=== PATIENT | female | born 1935 | race Two or more races ===

== ENCOUNTER 2017-10-04 15:26 | Inpatient (IN) | payer MEDICARE ==
[~2017-10-04] VITALS: Ht 162.6 cm; Wt 59.0 kg
[2017-10-04] MEDS ORDERED: METFORMIN HCL500 M1 ORAL (15:53)
[2017-10-04] MEDS ORDERED: HYDROCHLOROTH12.5 M2 ORAL (15:53)
[2017-10-04] MEDS ORDERED: XANAX0.25 MG ORAL (15:53)
[2017-10-04 16:31] VITALS: BP 126/70
[2017-10-04 16:51] LABS: BASOPHILS % (AUTO) 1.7 % (0.0-2.0); EOSINOPHILS % (AUTO) 4.9 % (0.0-3.0); HEMATOCRIT 38.4 % (37.0-47.0); HEMOGLOBIN 13.1 G/DL (12.0-16.0); MEAN CORPUSCULAR VOLUME 96 FL (80-99); MONOCYTES % (AUTO) 7.6 % (1.0-10.0); NEUTROPHILS % (AUTO) 51.9 % (45.0-75.0); PLATELET COUNT 242 K/UL (150-450); RED CELL DISTRIBUTION WIDTH 11.7 % (11.6-14.8); WHITE BLOOD COUNT 8.8 K/UL (4.8-10.8)
[2017-10-04 17:22] LABS: ALANINE AMINOTRANSFERASE 13 U/L (12-78); ALBUMIN 3.5 G/DL (3.4-5.0); ALBUMIN/GLOBULIN RATIO 0.9 (1.0-2.7); ALKALINE PHOSPHATASE 87 U/L (46-116); ANION GAP 3 mmol/L (5-15); ASPARTATE AMINO TRANSFERASE 16 U/L (15-37); BILIRUBIN,TOTAL 0.2 MG/DL (0.2-1.0); BLOOD UREA NITROGEN 35 mg/dL (7-18); CALCIUM 9.5 MG/DL (8.5-10.1); CARBON DIOXIDE 34 MMOL/L (21-32); CHLORIDE 104 MMOL/L (98-107); CKMB < 0.5 NG/ML (0.0-3.6); CREATINE KINASE 32 U/L (26-308); CREATININE 1.1 MG/DL (0.55-1.30); POTASSIUM 4.3 MMOL/L (3.5-5.1); SODIUM 141 MMOL/L (136-145)
--- NOTE | 2017-10-04 17:33 | Diagnostic Imaging Report ---
Indication: Altered mental status Technique: spiral acquisitions obtained through the brain. Angled axial and coronal 5 x 5 mm slices were reconstructed. No IV contrast utilized. Radiation dose was minimized using automated exposure control Total dose length product 1464.06 mGycm. CTDIvol(s) 70.38 mGy Comparison: none FINDINGS: No acute hemorrhage or edema. No mass effect or midline shift. There is age-related enlargement of the ventricles and extra axial CSF spaces. There is periventricular deep white matter ischemic change. Normal desai-white differentiation. There is evidence of prior bilateral ocular surgery. Visualized sinuses are unremarkable. Intact calvarium. IMPRESSION: Chronic and age-related changes. Negative for acute intracranial bleed or mass effect The CT scanner at [facility] is accredited by the [employer] and the scans are performed using protocols designed to limit radiation exposure to as low as reasonably achievable to attain images of sufficient resolution adequate for diagnostic evaluation
[2017-10-04 17:36] LABS: APPEARANCE,URINE CLEAR; BILIRUBIN, URINE NEGATIVE (NEGATIVE); COLOR,URINE PALE YELLOW; GLUCOSE, URINE (UA) NEGATIVE (NEGATIVE); KETONES,URINE NEGATIVE (NEGATIVE); LEUKOCYTE ESTERASE ,URINE NEGATIVE (NEGATIVE); NITRITE,URINE NEGATIVE (NEGATIVE); PH,URINE 7 (4.5-8.0); PROTEIN,URINE 1+ (NEGATIVE); UROBILINOGEN,URINE NORMAL MG/DL (0.0-1.0)
--- NOTE | 2017-10-04 18:24 | Emergency Room Report ---
History of Present Illness General Chief Complaint: Generalized Weakness Source: Medical Record Present Illness HPI 82-year-old female presents ED for evaluation. Patient presenting with weakness and lethargy for the last 3 days. States she feels very tired. States she has very poor appetite. Not eating or drinking. Denies fevers or chills. Denies chest pain. Denies nausea or vomiting. No other aggravating or relieving factors. Denies any other associated symptoms Allergies: Coded Allergies: No Known Allergies (Unverified , 10/04/17) Patient History Past Medical History: DM, HTN Past Surgical History: none Pertinent Family History: none Social History: Denies: smoking, alcohol use, drug use Now: No Immunizations: UTD Reviewed Nursing Documentation: PMH: Agreed; PSxH: Agreed Nursing Documentation-PMH Past Medical History: No History, Except For Hx Hypertension: Yes Hx Diabetes: Yes Review of Systems All Other Systems: negative except mentioned in HPI Physical Exam Vital Signs Date Time Temp Pulse Resp B/P (MAP) Pulse Ox O2 Delivery O2 Flow Rate FiO2 10/04/17 15:23 99.1 80 18 132/82 99 Room Air 99.1 Sp02 EP Interpretation: reviewed, normal General Appearance: no apparent distress, alert, GCS 15, non-toxic Head: normocephalic, atraumatic Eyes: bilateral eye normal inspection, bilateral eye PERRL ENT: hearing grossly normal, normal pharynx, no angioedema, normal voice Neck: full range of motion, supple/symm/no masses Respiratory: chest non-tender, lungs clear, normal breath sounds, speaking full sentences Cardiovascular #1: regular rate, rhythm, no edema Cardiovascular #2: 2+ carotid (R), 2+ carotid (L), 2+ radial (R), 2+ radial (L) , 2+ dorsalis pedis (R), 2+ dorsalis pedis (L) Gastrointestinal: normal bowel sounds, non tender, soft, non-distended, no guarding, no rebound Rectal: deferred Genitourinary: normal inspection, no CVA tenderness Musculoskeletal: back normal, gait/station normal, normal range of motion, non- tender Neurologic: alert, oriented x3, responsive, motor strength/tone normal, sensory intact, speech normal Psychiatric: judgement/insight normal, memory normal, mood/affect normal, no suicidal/homicidal ideation Reflexes: 3+ bicep (R), 3+ bicep (L), 3+ tricep (R), 3+ tricep (L), 3+ knee (R) , 3+ knee (L) Skin: normal color, no rash, warm/dry, well hydrated Lymphatic: no adenopathy Medical Decision Making Diagnostic Impression: Primary Impression: Episode of generalized weakness Additional Impression: ALTON (acute kidney injury) ER Course Hospital Course 82-year-old female presenting to ED with generalized weakness, increased lethargy Differential diagnoses include: Pneumonia, UTI, sepsis, dehydration, PA/ unstable angina Clinical course Patient placed on stretcher. On linux architect with stable vitals are ED course. After initial history and physical, I ordered labs, IV fluids, EKG, chest x-ray, blood cultures, UA. CT Head Labs - BUN elevated, no leukocytosis, troponins negative, UA negative CT Head ok EKG - NSR, no acute ischemic changes interpreted by me CXR - no acute process Patient continues to feel very weak. Not tolerating by mouth. I believe patient requires inpatient workup Case discussed with Dr Mcclelland and they agreed to admit patient to their service for further care and support I feel this is a highly complex case requiring extensive working including EKG/ Rhythm strip, Xray/CT/US, Blood/urine lab work, repeat exams while in ED, and administration of strong opiates/narcotics for pain control, admission to hospital or close patient follow up. Diagnosis - ALTON, generalized weakness Patient admitted to floor in serious condition Labs Test 10/04/17 16:15 10/04/17 16:58 White Blood Count 8.8 K/UL (4.8-10.8) Red Blood Count 4.00 M/UL (4.20-5.40) Hemoglobin 13.1 G/DL (12.0-16.0) Hematocrit 38.4 % (37.0-47.0) Mean Corpuscular Volume 96 FL (80-99) Mean Corpuscular Hemoglobin 32.7 PG (27.0-31.0) Mean Corpuscular Hemoglobin Concent 34.0 G/DL (32.0-36.0) Red Cell Distribution Width 11.7 % (11.6-14.8) Platelet Count 242 K/UL (150-450) Mean Platelet Volume 5.8 FL (6.5-10.1) Neutrophils (%) (Auto) 51.9 % (45.0-75.0) Lymphocytes (%) (Auto) 34.0 % (20.0-45.0) Monocytes (%) (Auto) 7.6 % (1.0-10.0) Eosinophils (%) (Auto) 4.9 % (0.0-3.0) Basophils (%) (Auto) 1.7 % (0.0-2.0) Sodium Level 141 MMOL/L (136-145) Potassium Level 4.3 MMOL/L (3.5-5.1) Chloride Level 104 MMOL/L (98-107) Carbon Dioxide Level 34 MMOL/L (21-32) Anion Gap 3 mmol/L (5-15) Blood Urea Nitrogen 35 mg/dL (7-18) Creatinine 1.1 MG/DL (0.55-1.30) Estimat Glomerular Filtration Rate mL/min (>60) Glucose Level 115 MG/DL (74-106) Lactic Acid Level 2.00 mmol/L (0.66-2.22) Calcium Level 9.5 MG/DL (8.5-10.1) Total Bilirubin 0.2 MG/DL (0.2-1.0) Aspartate Amino Transf (AST/SGOT) 16 U/L (15-37) Alanine Aminotransferase (ALT/SGPT) 13 U/L (12-78) Alkaline Phosphatase 87 U/L (46-116) Total Creatine Kinase 32 U/L (26-308) Creatine Kinase MB < 0.5 NG/ML (0.0-3.6) Creatine Kinase MB Relative Index 1.5 Troponin I 0.000 ng/mL (0.000-0.056) Pro-B-Type Natriuretic Peptide 146 pg/mL (0-125) Total Protein 7.6 G/DL (6.4-8.2) Albumin 3.5 G/DL (3.4-5.0) Globulin 4.1 g/dL Albumin/Globulin Ratio 0.9 (1.0-2.7) Urine Color Pale yellow Urine Appearance Clear Urine pH 7 (4.5-8.0) Urine Specific [place] 1.010 (1.005-1.035) Urine Protein 1+ (NEGATIVE) Urine Glucose (UA) Negative (NEGATIVE) Urine Ketones Negative (NEGATIVE) Urine Occult Blood Negative (NEGATIVE) Urine Nitrite Negative (NEGATIVE) Urine Bilirubin Negative (NEGATIVE) Urine Urobilinogen Normal MG/DL (0.0-1.0) Urine Leukocyte Esterase Negative (NEGATIVE) Urine RBC 0-2 /HPF (0 - 2) Urine WBC 0-2 /HPF (0 - 2) Urine Squamous Epithelial Cells Few /LPF (NONE/OCC) Urine Bacteria Few /HPF (NONE) EKG Diagnostic Results Rate: normal Rhythm: NSR ST Segments: no acute changes ASA given to the pt in ED: No Rhythm Strip Diag. Results EP Interpretation: yes Rhythm: NSR, no PVC's, no ectopy Chest X-Ray Diagnostic Results Chest X-Ray Diagnostic Results : Chest X-Ray Ordered: Yes # of Views/Limited/Complete: 1 View Indication: Other - lethargy, weakness EP Interpretation: Yes Interpretation: no consolidation, no effusion, no pneumothorax, no acute cardiopulmonary disease Impression: No acute disease Electronically Signed by: Electronically signed by Elias Walden MD CT/MRI/US Diagnostic Results CT/MRI/US Diagnostic Results : Imaging Test Ordered: CT Head Impression no acute process Last Vital Signs Date Time Temp Pulse Resp B/P (MAP) Pulse Ox O2 Delivery O2 Flow Rate FiO2 10/04/17 16:31 96.7 76 14 126/70 96 Room Air 96.7 Status: improved Disposition: ADMITTED INPATIENT Condition: Serious Referrals: NOT CHOSEN IPA/,REFERRING (PCP) ELIAS WALDEN M.D. Oct 04, 2017 18:24
[2017-10-04 18:25] VITALS: BP 142/86
--- NOTE | 2017-10-04 18:25 | Diagnostic Imaging Report ---
Indication: Chest pain Technique: One view of the chest Comparison: None Findings: There is a retrocardiac hiatal hernia. Inspiration is suboptimal. The heart size is upper limits of normal. Lungs and pleural spaces are grossly clear. There are cholecystectomy clips. Old healed fracture deformity of the left shoulder Impression: No acute process Hiatal hernia
[2017-10-04] MEDS: NovoLOG Insulin Flexpen SUBQ SCH (21:00)
[2017-10-04] MEDS: Heparin 5000 units/ml inj SUBQ SCH (22:19)
--- NOTE | 2017-10-05 | History and Physical Report ---
DATE OF ADMISSION: 10/04/2017 CHIEF COMPLAINT: Generalized weakness, malaise, and dizziness. HISTORY OF PRESENT ILLNESS: The patient is a pleasant female with history of hypertension and diabetes. She is somewhat of a poor historian. She presented with complaints of generalized weakness, dizziness, and failure to thrive. She denies any fever or chills. She has had no cough. She does admit some mild diarrhea. She denies any recent travel or ill contacts. On evaluation in the emergency room, the patient's initial workup was relatively unremarkable. She did have an EKG with right bundle-branch block. It is unclear whether this is new. The patient had a lactic acid level of 2. UA was clear. Initial troponin was negative. She is now admitted for further evaluation and care. PAST MEDICAL HISTORY: As above. PAST SURGICAL HISTORY: None. CURRENT MEDICATIONS: Reconciled and reviewed. ALLERGIES: None. SOCIAL HISTORY: There is no known history of tobacco, ethanol, or drugs. FAMILY HISTORY: None. REVIEW OF SYSTEMS: GENERAL: Positive for dizziness, malaise, and weakness. HEENT: No headaches. CARDIOPULMONARY: No chest pain. No shortness of breath. GASTROINTESTINAL: No nausea or vomiting. GENITOURINARY: No urgency or frequency. MUSCULOSKELETAL: No joint pain or swelling. NEUROLOGIC: No history of seizures. PHYSICAL EXAMINATION: VITAL SIGNS: Temperature 98 degrees, pulse 71, respirations 18, and blood pressure 142/86. GENERAL: The patient is well developed, in no apparent distress. HEART: Regular rate and rhythm. LUNGS: Clear. ABDOMEN: Soft, nontender, and nondistended. EXTREMITIES: Without clubbing, cyanosis, or edema. LABORATORY DATA: Sodium 141, potassium 4.3, bicarbonate 34, BUN 35, and creatinine 1.1. White count 8 and hemoglobin 13. UA was clear. ASSESSMENT: This is a pleasant female with complaints of: 1. Weakness suspect due to dehydration from gastroenteritis. 2. Dehydration. 3. Gastroenteritis. 4. Diabetes. 5. Hypertension. 6. Failure to thrive. 7. Toxic metabolic encephalopathy. PLAN: 1. IV hydration. 2. Check an echocardiogram. 3. Check orthostatics. 4. Continue outpatient diabetic regimen. 5. Repeat troponin in the morning. 6. PT/OT evaluation. Cecil Mcclelland M.D. DR: Tara JOB#: [id number] CC:
[2017-10-05 04:00] VITALS: BP 140/91
[2017-10-05] MEDS: NovoLOG Insulin Flexpen SUBQ SCH ×4 (05:48→20:42)
[2017-10-05 08:00] VITALS: BP 147/90
--- NOTE | 2017-10-05 09:43 | General Progress Note ---
Assessment/Plan Problem List: (1) ALTON (acute kidney injury) ICD Codes: N17.9 - Acute kidney failure, unspecified SNOMED: 32197580 (2) Episode of generalized weakness ICD Codes: R53.1 - Weakness SNOMED: 75527422 Status: stable, progressing Assessment/Plan ivf monitor for diarrhea pt/ot eval Subjective ROS Limited/Unobtainable: No Constitutional: Reports: malaise, weakness HEENT: Reports: no symptoms Cardiovascular: Reports: no symptoms Respiratory: Reports: no symptoms Gastrointestinal/Abdominal: Reports: diarrhea Genitourinary: Reports: no symptoms Neurologic/Psychiatric: Reports: no symptoms Endocrine: Reports: no symptoms Hematologic/Lymphatic: Reports: no symptoms Allergies: Coded Allergies: No Known Allergies (Unverified , 10/04/17) All Systems: reviewed and negative except above Subjective no events. w/o complaints. weak. dizzy. diarrhea. Objective Last 24 Hour Vital Signs Date Time Temp Pulse Resp B/P (MAP) Pulse Ox O2 Delivery O2 Flow Rate FiO2 10/05/17 09:20 87 10/05/17 09:15 79 10/05/17 09:10 77 10/05/17 08:00 97.0 111 18 147/90 98 97.0 10/05/17 04:00 96.8 112 17 140/91 93 96.8 10/04/17 19:12 73 69 77 10/04/17 18:41 96.7 71 18 142/86 97 Room Air 96.7 10/04/17 18:25 71 18 142/86 97 Room Air 10/04/17 16:31 96.7 76 14 126/70 96 Room Air 96.7 10/04/17 15:23 99.1 80 18 132/82 99 Room Air 99.1 Intake and Output 10/04/17 10/05/17 19:00 07:00 Intake Total 600 ml Output Total 100 ml Balance 500 ml IV Total 600 ml Output Urine Total 100 ml # Voids 1 1 # Bowel Movements 1 Laboratory Tests 10/04/17 16:15: White Blood Count 8.8, Red Blood Count 4.00L, Hemoglobin 13.1, Hematocrit 38.4, Mean Corpuscular Volume 96, Mean Corpuscular Hemoglobin 32.7H, Mean Corpuscular Hemoglobin Concent 34.0, Red Cell Distribution Width 11.7, Platelet Count 242, Mean Platelet Volume 5.8L, Neutrophils (%) (Auto) 51.9, Lymphocytes (%) (Auto) 34.0, Monocytes (%) (Auto) 7.6, Eosinophils (%) (Auto) 4.9H, Basophils (%) (Auto ) 1.7, Sodium Level 141, Potassium Level 4.3, Chloride Level 104, Carbon Dioxide Level 34H, Anion Gap 3L, Blood Urea Nitrogen 35H, Creatinine 1.1, Estimat Glomerular Filtration Rate , Glucose Level 115H, Lactic Acid Level 2.00 , Calcium Level 9.5, Total Bilirubin 0.2, Aspartate Amino Transf (AST/SGOT) 16, Alanine Aminotransferase (ALT/SGPT) 13, Alkaline Phosphatase 87, Total Creatine Kinase 32, Creatine Kinase MB < 0.5, Creatine Kinase MB Relative Index 1.5, Troponin I 0.000, Pro-B-Type Natriuretic Peptide 146H, Total Protein 7.6, Albumin 3.5, Globulin 4.1, Albumin/Globulin Ratio 0.9L 10/04/17 16:58: Urine Color Pale yellow, Urine Appearance Clear, Urine pH 7, Urine Specific [place] 1.010, Urine Protein 1+H, Urine Glucose (UA) Negative, Urine Ketones Negative, Urine Occult Blood Negative, Urine Nitrite Negative, Urine Bilirubin Negative, Urine Urobilinogen Normal, Urine Leukocyte Esterase Negative, Urine RBC 0-2, Urine WBC 0-2, Urine Squamous Epithelial Cells Few, Urine Bacteria Few 10/04/17 18:17: Lactic Acid Level 1.70 10/05/17 05:20: Troponin I 0.000, Hemoglobin A1c 6.2H, Thyroid Stimulating Hormone (TSH) 2.073 Height (Feet): 5 Height (Inches): 4.00 Weight (Pounds): 130 General Appearance: WD/WN, alert Neck: supple Cardiovascular: normal rate, regular rhythm Respiratory/Chest: chest wall non-tender, lungs clear, normal breath sounds Abdomen: normal bowel sounds, non tender, soft Edema: no edema noted Arm (L), no edema noted Arm (R), no edema noted Leg (L), no edema noted Leg (R), no edema noted Pedal (L), no edema noted Pedal (R), no edema noted Generalized Neurologic: alert ASIA ZIEGLER Oct 05, 2017 09:43
[2017-10-05] MEDS: Heparin 5000 units/ml inj SUBQ SCH ×2 (09:46→20:42)
[2017-10-05 12:00] VITALS: BP 150/86
[2017-10-05 15:38] VITALS: BP 155/104
[2017-10-05] MEDS ORDERED: ALPRAZolam 0.25mg tab ORAL PRN (18:00)
[2017-10-05 20:00] VITALS: BP 145/86
[2017-10-05] MEDS ORDERED: Atorvastatin 20mg tab ORAL SCH (21:00)
[2017-10-06] VITALS: BP 140/79
[2017-10-06 04:48] VITALS: BP 142/86
[2017-10-06] MEDS: NovoLOG Insulin Flexpen SUBQ SCH ×4 (06:35→21:00)
[2017-10-06 08:00] VITALS: BP 139/80
--- NOTE | 2017-10-06 08:35 | General Progress Note ---
Assessment/Plan Problem List: (1) ALTON (acute kidney injury) ICD Codes: N17.9 - Acute kidney failure, unspecified SNOMED: 12007405 (2) Episode of generalized weakness ICD Codes: R53.1 - Weakness SNOMED: [id number] Status: stable, progressing Assessment/Plan ivf monitor for diarrhea pt/ot eval Subjective ROS Limited/Unobtainable: No Constitutional: Reports: malaise, weakness HEENT: Reports: no symptoms Cardiovascular: Reports: no symptoms Respiratory: Reports: no symptoms Gastrointestinal/Abdominal: Reports: abdominal pain Genitourinary: Reports: no symptoms Neurologic/Psychiatric: Reports: no symptoms Endocrine: Reports: no symptoms Hematologic/Lymphatic: Reports: no symptoms Allergies: Coded Allergies: No Known Allergies (Unverified , 10/04/17) All Systems: reviewed and negative except above Subjective no events. w/o complaints. weak. dizzy. diarrhea. ct head and abd xray noted. Objective Last 24 Hour Vital Signs Date Time Temp Pulse Resp B/P (MAP) Pulse Ox O2 Delivery O2 Flow Rate FiO2 10/06/17 08:00 98.1 73 18 139/80 97 Room Air 98.1 10/06/17 04:48 98.2 68 18 142/86 94 Room Air 98.2 10/06/17 00:43 Room Air 10/06/17 00:00 97.9 66 18 140/79 96 Room Air 97.9 10/05/17 20:00 Room Air 10/05/17 20:00 97.9 78 20 145/86 96 Room Air 97.9 10/05/17 19:12 74 95 93 10/05/17 18:40 87 155/104 10/05/17 15:38 96.5 87 18 155/104 95 96.5 10/05/17 12:00 97.3 74 18 150/86 99 97.3 10/05/17 09:20 87 10/05/17 09:15 79 10/05/17 09:10 77 Intake and Output 10/05/17 10/06/17 19:00 07:00 Intake Total 805 ml 825 ml Balance 805 ml 825 ml Intake Oral 730 ml IV Total 75 ml 825 ml # Voids 5 Height (Feet): 5 Height (Inches): 4.00 Weight (Pounds): 130 Objective General Appearance: WD/WN, alert Neck: supple Cardiovascular: normal rate, regular rhythm Respiratory/Chest: chest wall non-tender, lungs clear, normal breath sounds Abdomen: normal bowel sounds, non tender, soft Edema: no edema noted Arm (L), no edema noted Arm (R), no edema noted Leg (L), no edema noted Leg (R), no edema noted Pedal (L), no edema noted Pedal (R), no edema noted Generalized Neurologic: alert ASIA ZIEGLER Oct 06, 2017 08:35
[2017-10-06] MEDS ORDERED: Citalopram Hydrobromide 10mg Tab ORAL SCH (09:00)
[2017-10-06] MEDS: Heparin 5000 units/ml inj SUBQ SCH ×2 (09:00→22:01)
[2017-10-06] MEDS ORDERED: metFORMIN 500mg tab ORAL SCH (09:00)
[2017-10-06 12:00] VITALS: BP 150/104
[2017-10-06] MEDS ORDERED: Metoprolol Succinate XL 25mg tab ORAL ONE (13:00)
[2017-10-06 16:00] VITALS: BP 144/100
[2017-10-06] MEDS: metFORMIN 500mg tab ORAL SCH (17:06)
[2017-10-06 20:00] VITALS: BP 145/100
[2017-10-06 21:17] LABS: BASOPHILS % (AUTO) 1.3 % (0.0-2.0); EOSINOPHILS % (AUTO) 3.1 % (0.0-3.0); HEMATOCRIT 41.3 % (37.0-47.0); HEMOGLOBIN 14.4 G/DL (12.0-16.0); LYMPHOCYTES % (AUTO) 38.8 % (20.0-45.0); MEAN CORPUSCULAR VOLUME 93 FL (80-99); MONOCYTES % (AUTO) 8.3 % (1.0-10.0); NEUTROPHILS % (AUTO) 48.6 % (45.0-75.0); PLATELET COUNT 319 K/UL (150-450); RED BLOOD COUNT 4.45 M/UL (4.20-5.40); RED CELL DISTRIBUTION WIDTH 11.2 % (11.6-14.8)
[2017-10-06 21:37] LABS: ALANINE AMINOTRANSFERASE 15 U/L (12-78); ALBUMIN 3.6 G/DL (3.4-5.0); ALBUMIN/GLOBULIN RATIO 0.9 (1.0-2.7); ALKALINE PHOSPHATASE 90 U/L (46-116); ANION GAP 10 mmol/L (5-15); ASPARTATE AMINO TRANSFERASE 14 U/L (15-37); BILIRUBIN,TOTAL 0.5 MG/DL (0.2-1.0); BLOOD UREA NITROGEN 16 mg/dL (7-18); CALCIUM 9.6 MG/DL (8.5-10.1); CARBON DIOXIDE 29 MMOL/L (21-32); CHLORIDE 98 MMOL/L (98-107); CREATININE 0.9 MG/DL (0.55-1.30); POTASSIUM 3.2 MMOL/L (3.5-5.1); SODIUM 137 MMOL/L (136-145)
[2017-10-06] MEDS: Atorvastatin 20mg tab ORAL SCH (21:58)
[2017-10-06] MEDS: Metoprolol Tartrate 50mg tab ORAL SCH (21:58)
[2017-10-07] VITALS: BP 153/91
[2017-10-07 04:00] VITALS: BP 156/84
--- NOTE | 2017-10-07 04:45 | Consultation ---
DATE OF CONSULTATION: 10/05/2017 CARDIOLOGY CONSULT CONSULTING PHYSICIAN: Figueroa Orantes M.D. REQUESTING PHYSICIAN: Cecil Mcclelland M.D. REASON FOR CONSULTATION: Abnormal EKG. HISTORY OF PRESENT ILLNESS: This is an -[id number]-[id number] female presented to the emergency room yesterday with generalized weakness, dizziness, and failure to thrive. She denies fevers or chills, cough, sputum production or shortness of breath, but did have some mild diarrhea. She apparently has not had any recent travel or ill contacts. She had an abnormal EKG in the emergency room, prompting this consultation. Initial troponin levels were negative as was her subsequent 1. I have been asked to assist with further care. PAST MEDICAL HISTORY: Type 2 diabetes mellitus and hypertension. ALLERGIES: None. SOCIAL HISTORY: Negative for smoking, alcohol, or substance abuse. FAMILY HISTORY: Noncontributory. MEDICATIONS: Reviewed and reconciled. REVIEW OF SYSTEMS: No history of endocarditis, pericarditis, myocardial infarction, or exertional chest pain. No history of blood clots in the legs. No history of thyroid disorder. No history of prior stroke, but does not know her cholesterol level. PHYSICAL EXAMINATION: VITAL SIGNS: Afebrile. Blood pressure 155/104, pulse 87, respirations 18. HEENT: Conjunctivae are pink. Oropharynx clear. NECK: Supple. Jugular venous pressure normal. LUNGS: Clear. CARDIAC: Regular rhythm and rate. Normal S1 and S2 with a fourth heart sound. ABDOMEN: Soft and nontender. EXTREMITIES: No edema. ADMISSION LABORATORY DATA: Chest x-ray with no acute process. Troponin negative x2. Lactic acid on admission was 2, now 1.7. BUN 35, creatinine 1.1. Pro-natriuretic peptide 146. Discharge EKG sinus rhythm, inferior infarction of indeterminate age. Right bundle-branch block. IMPRESSION: 1. Lactic acidosis, etiology unclear. Prerenal azotemia. 2. Hypertensive heart disease. No signs of acute congestive heart failure or acute coronary insufficiency. 3. Right bundle-branch block of no clinical significance. Current inferior infarction by EKG criteria. PLAN: Anti-platelet therapy. Lipid evaluation. Reassess metformin, hydration, titrate antihypertensives. Figueroa Orantes M.D. DR: SEAN JOB#: [id number] CC:
[2017-10-07] MEDS: NovoLOG Insulin Flexpen SUBQ SCH ×4 (06:30→21:00)
[2017-10-07 08:00] VITALS: BP 122/92
--- NOTE | 2017-10-07 08:13 | General Progress Note ---
Assessment/Plan Problem List: (1) ALTON (acute kidney injury) ICD Codes: N17.9 - Acute kidney failure, unspecified SNOMED: [id number] (2) Episode of generalized weakness ICD Codes: R53.1 - Weakness SNOMED: [id number] Status: stable Assessment/Plan ivf monitor for diarrhea pt/ot eval tele b-blockade mg and k replace follow up troponin carotids cards follow up Subjective ROS Limited/Unobtainable: No Constitutional: Reports: malaise, weakness HEENT: Reports: no symptoms Cardiovascular: Reports: palpitations Respiratory: Reports: no symptoms Gastrointestinal/Abdominal: Reports: no symptoms Genitourinary: Reports: no symptoms Neurologic/Psychiatric: Reports: weakness Endocrine: Reports: no symptoms Hematologic/Lymphatic: Reports: no symptoms Allergies: Coded Allergies: No Known Allergies (Unverified , 10/04/17) All Systems: reviewed and negative except above Subjective transferred to tele for svt now admits to syncopal episode and dizziness at home. no cp Objective Last 24 Hour Vital Signs Date Time Temp Pulse Resp B/P (MAP) Pulse Ox O2 Delivery O2 Flow Rate FiO2 10/07/17 04:00 97.3 68 16 156/84 95 Room Air 97.3 10/07/17 04:00 69 10/07/17 00:00 98.2 65 18 153/91 94 Room Air 98.2 10/07/17 00:00 69 10/06/17 21:58 125 145/100 10/06/17 20:00 116 10/06/17 20:00 98.1 125 20 145/100 97 Room Air 98.1 10/06/17 16:00 96.5 124 19 144/100 96 Room Air 96.5 10/06/17 16:00 123 10/06/17 13:39 127 150/104 10/06/17 12:00 96.9 127 18 150/104 96 Room Air 96.9 10/06/17 09:43 73 139/80 Intake and Output 10/06/17 10/07/17 19:00 07:00 Intake Total 356 ml Balance 356 ml Intake Oral 356 ml # Voids 3 # Bowel Movements 1 Laboratory Tests 10/06/17 17:00: Troponin I 0.000 10/06/17 21:00: White Blood Count 11.0H, Red Blood Count 4.45, Hemoglobin 14.4, Hematocrit 41.3 , Mean Corpuscular Volume 93, Mean Corpuscular Hemoglobin 32.3H, Mean Corpuscular Hemoglobin Concent 34.8, Red Cell Distribution Width 11.2L, Platelet Count 319, Mean Platelet Volume 5.9L, Neutrophils (%) (Auto) 48.6, Lymphocytes (%) (Auto) 38.8, Monocytes (%) (Auto) 8.3, Eosinophils (%) (Auto) 3.1H, Basophils (%) (Auto) 1.3, Fibrin Degradation Products, Quant [Pending], Sodium Level 137, Potassium Level 3.2L, Chloride Level 98, Carbon Dioxide Level 29, Anion Gap 10, Blood Urea Nitrogen 16, Creatinine 0.9, Estimat Glomerular Filtration Rate , Glucose Level 115H, Calcium Level 9.6, Magnesium Level 1.2L, Total Bilirubin 0.5, Aspartate Amino Transf (AST/SGOT) 14L, Alanine Aminotransferase (ALT/SGPT) 15, Alkaline Phosphatase 90, Total Protein 7.8, Albumin 3.6, Globulin 4.2, Albumin/Globulin Ratio 0.9L Height (Feet): 5 Height (Inches): 4.00 Weight (Pounds): 130 Objective General Appearance: WD/WN, alert Neck: supple Cardiovascular: normal rate, regular rhythm Respiratory/Chest: chest wall non-tender, lungs clear, normal breath sounds Abdomen: normal bowel sounds, non tender, soft Edema: no edema noted Arm (L), no edema noted Arm (R), no edema noted Leg (L), no edema noted Leg (R), no edema noted Pedal (L), no edema noted Pedal (R), no edema noted Generalized Neurologic: alert ASIA ZIEGLER Oct 07, 2017 08:13
[2017-10-07] MEDS: Metoprolol Tartrate 50mg tab ORAL SCH ×2 (09:41→21:08)
[2017-10-07] MEDS: ALPRAZolam 0.25mg tab ORAL PRN ×2 (09:41→17:45)
[2017-10-07] MEDS: Citalopram Hydrobromide 10mg Tab ORAL SCH (09:42)
[2017-10-07] MEDS: metFORMIN 500mg tab ORAL SCH ×2 (09:42→17:45)
[2017-10-07] MEDS: Aspirin Baby 81mg ORAL SCH (09:43)
[2017-10-07] MEDS: Heparin 5000 units/ml inj SUBQ SCH ×2 (09:45→21:12)
--- NOTE | 2017-10-07 10:15 | Progress Note ---
DATE: 10/06/2017 CARDIOLOGY PROGRESS NOTE SUBJECTIVE: The patient developed tachycardia today. No complaints of chest pain or shortness of breath. Troponin level is negative. OBJECTIVE: VITAL SIGNS: Blood pressure 145/100, pulse 125, respirations 20, and afebrile. Room air oxygen saturation 97%. NECK: Supple. No accessory muscle use. LUNGS: Clear. CARDIAC: Regular rhythm and rate. Normal S1, S2 with a fourth heart sound. ABDOMEN: Soft, no edema. LABORATORY DATA: Notable for potassium 3.2, magnesium 1.2. IMPRESSION: 1. Hypertensive urgency. 2. Sinus tachycardia, etiology unclear. 3. Ischemic heart disease, by EKG criteria. PLAN: 1. beta-franklin and antihypertensive. 2. Aspirin prophylaxis. 3. Check fibrin split products and venous duplex scan. 4. Check lipid panel. 5. Check thyroid panel. 6. Replace potassium and magnesium intravenously. Figueroa Orantes M.D. DR: BRENDA JOB#: [id number] CC:
[2017-10-07 11:32] LABS: ALANINE AMINOTRANSFERASE 14 U/L (12-78); ALBUMIN 3.8 G/DL (3.4-5.0); ALBUMIN/GLOBULIN RATIO 1.1 (1.0-2.7); ALKALINE PHOSPHATASE 89 U/L (46-116); ANION GAP 10 mmol/L (5-15); ASPARTATE AMINO TRANSFERASE 17 U/L (15-37); BILIRUBIN,TOTAL 0.4 MG/DL (0.2-1.0); BLOOD UREA NITROGEN 18 mg/dL (7-18); CALCIUM 9.5 MG/DL (8.5-10.1); CARBON DIOXIDE 27 MMOL/L (21-32); CHLORIDE 98 MMOL/L (98-107); CHOLESTEROL 193 MG/DL (< 200); CREATININE 0.8 MG/DL (0.55-1.30); HDL CHOLESTEROL 69 MG/DL (40-60); POTASSIUM 3.8 MMOL/L (3.5-5.1); SODIUM 135 MMOL/L (136-145); TRIGLYCERIDES 106 MG/DL (30-150)
[2017-10-07 12:00] VITALS: BP 156/59
[2017-10-07 16:00] VITALS: BP 130/80
--- NOTE | 2017-10-07 18:17 | Cardiology Report ---
APPROVED REPORT EXAM: Two-dimensional and M-mode echocardiogram with Doppler and color Doppler. INDICATION Hypertension/HCVD M-Mode DIMENSIONS IVSd1.6 (0.7-1.1cm)Left Atrium (MM)3.5 (1.6-4.0cm) LVDd3.3 (3.5-5.6cm)Aortic Root3.0 (2.0-3.7cm) PWd1.0 (0.7-1.1cm)Aortic Cusp Exc.1.4 (1.5-2.0cm) LVDs0.9 (2.5-4.0cm) PWs2.3 cm Technically difficult and limited study due to poor acoustical windows. Study quality precludes accurate assessment of regional wall motion. Normal left ventricular chamber size, systolic function and wall motion. Left ventricular ejection fraction estimated to be 55-60%. Mild left ventricular hypertrophy. Anterior Echo-free space, may be due to pericardial fat or effusion. Left atrial size at upper limits of normal. Right cardiac chamber sizes are within normal limits. Focal aortic valve sclerosis with adequate cusp excursion. Mildly thickened mitral valve leaflets with normal excursion. Mild mitral annulus and aortic root calcification. Pulmonic valve not visualized. Normal tricuspid valve structure. IVC dilated at 2.1 cm with physiological collapse. A color flow and spectral Doppler study was performed and revealed: Moderate aortic insufficiency. Mild mitral regurgitation. pseudo-normal LV physiology (grade II LV diastolic dysfunction). Mild tricuspid regurgitation. Tricuspid systolic velocities suggests peak right ventricular systolic pressure of 49 mmHg, consistent with moderate pulmonary hypertension.
--- NOTE | 2017-10-07 18:56 | Cardiology Report ---
APPROVED REPORT EXAM: Two-dimensional and M-mode echocardiogram with Doppler and color Doppler. INDICATION Arrhythmia M-Mode DIMENSIONS IVSd1.6 (0.7-1.1cm)Left Atrium (MM)3.7 (1.6-4.0cm) LVDd3.5 (3.5-5.6cm)Aortic Root3.3 (2.0-3.7cm) PWd1.1 (0.7-1.1cm)Aortic Cusp Exc.1.4 (1.5-2.0cm) LVDs0.8 (2.5-4.0cm) PWs2.3 cm Technically difficult and limited study due to poor acoustical windows. Study quality precludes accurate assessment of regional wall motion. Normal left ventricular chamber size, systolic function and wall motion. Left ventricular ejection fraction estimated to be 55-60 %. Mild left ventricular hypertrophy. Anterior Echo-free space, may be due to pericardial fat or effusion. Mild left atrial enlargement by 2D. Right cardiac chamber sizes are within normal limits. Focal aortic valve sclerosis with adequate cusp excursion. Mildly thickened mitral valve leaflets with normal excursion. Mild mitral annulus and aortic root calcification. Pulmonic valve not visualized. Normal tricuspid valve structure. IVC dilated at 2.1 cm with physiological collapse. A color flow and spectral Doppler study was performed and revealed: Moderate aortic insufficiency. Mild mitral regurgitation. Mitral diastolic velocities suggest mild left ventricular diastolic dysfunction (Grade I). Mild tricuspid regurgitation. Tricuspid systolic velocities suggests peak right ventricular systolic pressure of 38 mmHg, consistent with mild pulmonary hypertension.
--- NOTE | 2017-10-07 19:24 | Cardiology Report ---
APPROVED REPORT EKG Measurement Heart [id number] DC 152P20 [id number] Normal sinus rhythm Right bundle branch block Abnormal ECG
[2017-10-07 20:00] VITALS: BP 130/98
[2017-10-07] MEDS: Atorvastatin 20mg tab ORAL SCH (21:07)
[2017-10-08] VITALS (7 sets, daily range): BP systolic 104–146; BP diastolic 58–96
--- NOTE | 2017-10-08 03:31 | Progress Note ---
DATE: 10/07/2017 CARDIOLOGY PROGRESS NOTE SUBJECTIVE: The patient feels better. Less diarrhea. No chest pain. No shortness of breath. She received intravenous magnesium early this morning and oral potassium. OBJECTIVE: VITAL SIGNS: Blood pressure 156/84, pulse 68, and respirations 16. LUNGS: Clear. CARDIAC: Regular. Normal S1 and S2 with a fourth heart sound. ABDOMEN: Soft. EXTREMITIES: No edema. LABORATORY DATA: Lactic acid level and troponin are normal. Repeat potassium is 3.8. IMPRESSION: 1. Paroxysmal supraventricular tachyarrhythmias and sinus tachycardia, now resolved. 2. Hypomagnesemia. 3. Hypokalemia. 4. Syncope likely due to tachyarrhythmia and hypovolemia. 5. Type 2 diabetes mellitus. 6. History of hypertension. PLAN: 1. Follow up echocardiogram and carotid duplex studies. 2. Optimize cardiovascular regimen. 3. Recheck electrolytes. Figueroa Orantes M.D. DR: JAZZY JOB#: [id number] CC:
[2017-10-08] MEDS: NovoLOG Insulin Flexpen SUBQ SCH ×4 (06:18→21:00)
[2017-10-08 07:05] LABS: ALANINE AMINOTRANSFERASE 15 U/L (12-78); ALBUMIN 3.3 G/DL (3.4-5.0); ALBUMIN/GLOBULIN RATIO 0.9 (1.0-2.7); ALKALINE PHOSPHATASE 73 U/L (46-116); ANION GAP 9 mmol/L (5-15); ASPARTATE AMINO TRANSFERASE 15 U/L (15-37); BILIRUBIN,TOTAL 0.5 MG/DL (0.2-1.0); BLOOD UREA NITROGEN 23 mg/dL (7-18); CALCIUM 9.4 MG/DL (8.5-10.1); CARBON DIOXIDE 29 MMOL/L (21-32); CHLORIDE 101 MMOL/L (98-107); POTASSIUM 3.4 MMOL/L (3.5-5.1); SODIUM 139 MMOL/L (136-145)
[2017-10-08] MEDS: Metoprolol Tartrate 50mg tab ORAL SCH ×2 (08:56→21:47)
[2017-10-08] MEDS: metFORMIN 500mg tab ORAL SCH ×2 (08:56→17:35)
[2017-10-08] MEDS: Citalopram Hydrobromide 10mg Tab ORAL SCH (08:57)
[2017-10-08] MEDS: Heparin 5000 units/ml inj SUBQ SCH ×2 (08:59→21:52)
[2017-10-08] MEDS: Aspirin Baby 81mg ORAL SCH (09:01)
--- NOTE | 2017-10-08 10:29 | General Progress Note ---
Assessment/Plan Problem List: (1) ALTON (acute kidney injury) ICD Codes: N17.9 - Acute kidney failure, unspecified SNOMED: 37769969 (2) Episode of generalized weakness ICD Codes: R53.1 - Weakness SNOMED: 25122564 Status: stable, progressing Assessment/Plan ivf monitor for diarrhea pt/ot eval tele b-blockade mg and k replace carotids cards follow up Subjective ROS Limited/Unobtainable: No Constitutional: Reports: malaise, weakness HEENT: Reports: no symptoms Cardiovascular: Reports: no symptoms Respiratory: Reports: no symptoms Gastrointestinal/Abdominal: Reports: no symptoms Genitourinary: Reports: no symptoms Neurologic/Psychiatric: Reports: no symptoms Endocrine: Reports: no symptoms Hematologic/Lymphatic: Reports: no symptoms Allergies: Coded Allergies: No Known Allergies (Unverified , 10/04/17) All Systems: reviewed and negative except above Subjective no events. having intermittent episodes of svt as well as bradycardia. no cp/ sob. labs noted. low k and mg Objective Last 24 Hour Vital Signs Date Time Temp Pulse Resp B/P (MAP) Pulse Ox O2 Delivery O2 Flow Rate FiO2 10/08/17 09:30 144/77 129/79 104/58 10/08/17 09:00 97.0 89 18 129/96 98 Room Air 97.0 10/08/17 08:57 69 129/96 10/08/17 08:56 69 129/76 10/08/17 08:00 71 10/08/17 04:10 72 10/08/17 04:05 64 10/08/17 04:00 97.7 89 19 130/72 96 Room Air 97.7 10/08/17 04:00 61 10/08/17 04:00 86 10/08/17 00:00 97.4 94 18 123/82 92 Room Air 97.4 10/08/17 00:00 67 10/07/17 21:08 100 130/98 10/07/17 20:00 124 10/07/17 20:00 96.8 100 20 130/98 90 Room Air 96.8 10/07/17 16:00 97.3 87 19 130/80 98 Room Air 97.3 10/07/17 16:00 69 10/07/17 12:07 60 10/07/17 12:00 97.3 70 19 156/59 97 Room Air 97.3 Intake and Output 10/07/17 10/08/17 19:00 07:00 Intake Total 232 ml 116 ml Balance 232 ml 116 ml Intake Oral 232 ml 116 ml # Voids 1 5 Laboratory Tests 10/08/17 05:45: Sodium Level 139, Potassium Level 3.4L, Chloride Level 101, Carbon Dioxide Level 29, Anion Gap 9, Blood Urea Nitrogen 23H, Creatinine 1.0, Estimat Glomerular Filtration Rate , Glucose Level 83, Calcium Level 9.4, Magnesium Level 1.7L, Total Bilirubin 0.5, Aspartate Amino Transf (AST/SGOT) 15, Alanine Aminotransferase (ALT/SGPT) 15, Alkaline Phosphatase 73, Total Protein 6.8, Albumin 3.3L, Globulin 3.5, Albumin/Globulin Ratio 0.9L Height (Feet): 5 Height (Inches): 4.00 Weight (Pounds): 130 Objective General Appearance: WD/WN, alert Neck: supple Cardiovascular: normal rate, regular rhythm Respiratory/Chest: chest wall non-tender, lungs clear, normal breath sounds Abdomen: normal bowel sounds, non tender, soft Edema: no edema noted Arm (L), no edema noted Arm (R), no edema noted Leg (L), no edema noted Leg (R), no edema noted Pedal (L), no edema noted Pedal (R), no edema noted Generalized Neurologic: alert ASIA ZIEGLER Oct 08, 2017 10:29
[2017-10-08] MEDS: Atorvastatin 20mg tab ORAL SCH (21:47)
[2017-10-09] VITALS: BP 129/85
[2017-10-09 04:00] VITALS: BP 122/76
--- NOTE | 2017-10-09 04:30 | Progress Note ---
DATE: 10/08/2017 CARDIOLOGY PROGRESS NOTE SUBJECTIVE: The patient had episode of bradycardia to the 40s today, but was asymptomatic, it was transient for less than a minute. The patient continues to have some episodes of rapid heart rates in the low 100 range, but no SVT. Echocardiogram performed revealed normal ejection fraction, moderate aortic insufficiency, and mild tricuspid regurgitation due to degenerative valve disease. Venous duplex negative for DVT. OBJECTIVE: VITAL SIGNS: Blood pressure 144/77, pulse 89, respiratory rate 18 and afebrile. LUNGS: Clear. CARDIAC: Regular rate. Normal S1, S2. There is a 1/6 systolic apical murmur. EXTREMITIES: Without edema. LABORATORY DATA: Potassium 3.4, magnesium 1.7. IMPRESSION: 1. Paroxysmal supraventricular tachycardia. 2. Sinus node disease. 3. Hypertensive heart disease. 4. Hypokalemia. 5. Hypomagnesemia. 6. Mild protein calorie malnutrition. PLAN: 1. Additional potassium and magnesium replacement. 2. Titrate beta-franklin. 3. Mobilize fall precautions. 4. No immediate indication for pacemaker at this time. Figueroa Orantes M.D. DR: JULIANA JOB#: [id number] CC:
[2017-10-09] MEDS: NovoLOG Insulin Flexpen SUBQ SCH ×4 (05:54→21:00)
[2017-10-09 08:00] VITALS: BP 148/99
[2017-10-09] MEDS: Citalopram Hydrobromide 10mg Tab ORAL SCH (09:02)
[2017-10-09] MEDS: Metoprolol Tartrate 50mg tab ORAL SCH ×2 (09:05→21:24)
[2017-10-09] MEDS: Heparin 5000 units/ml inj SUBQ SCH ×2 (09:06→21:27)
[2017-10-09] MEDS: Aspirin Baby 81mg ORAL SCH (09:07)
[2017-10-09] MEDS: metFORMIN 500mg tab ORAL SCH ×2 (09:09→17:21)
[2017-10-09 12:00] VITALS: BP 141/78
[2017-10-09 16:00] VITALS: BP 141/63
[2017-10-09 20:00] VITALS: BP 127/69
[2017-10-09] MEDS: Atorvastatin 20mg tab ORAL SCH (21:24)
[2017-10-09] MEDS: ALPRAZolam 0.25mg tab ORAL PRN (21:31)
--- NOTE | 2017-10-09 21:42 | General Progress Note ---
Assessment/Plan Problem List: (1) ALTON (acute kidney injury) ICD Codes: N17.9 - Acute kidney failure, unspecified SNOMED: 74756143 (2) Episode of generalized weakness ICD Codes: R53.1 - Weakness SNOMED: 89570971 Status: stable, progressing Assessment/Plan ivf monitor orthostatics pt/ot eval tele b-blockade replace lytes as needed carotids cards follow up Subjective Constitutional: Reports: malaise, weakness HEENT: Reports: no symptoms Cardiovascular: Reports: irregular heart rate, palpitations Respiratory: Reports: no symptoms Gastrointestinal/Abdominal: Reports: no symptoms Genitourinary: Reports: no symptoms Neurologic/Psychiatric: Reports: no symptoms Endocrine: Reports: no symptoms Hematologic/Lymphatic: Reports: no symptoms Allergies: Coded Allergies: No Known Allergies (Unverified , 10/04/17) All Systems: reviewed and negative except above Subjective no events. having intermittent episodes of svt as well as bradycardia. no cp/ sob. cards noted +orthostatics Objective Last 24 Hour Vital Signs Date Time Temp Pulse Resp B/P (MAP) Pulse Ox O2 Delivery O2 Flow Rate FiO2 10/09/17 21:24 66 141/63 10/09/17 16:00 98.2 60 18 141/63 95 98.2 10/09/17 16:00 66 10/09/17 12:00 97.0 57 18 141/78 96 97.0 10/09/17 12:00 57 10/09/17 09:05 74 148/99 10/09/17 09:05 74 148/99 10/09/17 08:00 97.2 74 18 148/99 96 Room Air 97.2 10/09/17 08:00 66 10/09/17 04:00 106 10/09/17 04:00 96.6 98 18 122/76 95 Room Air 96.6 10/09/17 00:00 97.5 113 18 129/85 96 Room Air 97.5 10/09/17 00:00 110 10/08/17 21:47 67 142/91 Intake and Output 10/08/17 10/09/17 19:00 07:00 Intake Total 440 ml Output Total 400 ml Balance 40 ml Intake Oral 240 ml IV Total 200 ml Output Urine Total 400 ml # Voids 2 2 Height (Feet): 5 Height (Inches): 4.00 Weight (Pounds): 130 Objective General Appearance: WD/WN, alert Neck: supple Cardiovascular: normal rate, regular rhythm Respiratory/Chest: chest wall non-tender, lungs clear, normal breath sounds Abdomen: normal bowel sounds, non tender, soft Edema: no edema noted Arm (L), no edema noted Arm (R), no edema noted Leg (L), no edema noted Leg (R), no edema noted Pedal (L), no edema noted Pedal (R), no edema noted Generalized Neurologic: alert ASIA ZIEGLER Oct 09, 2017 21:42
[2017-10-09] MEDS ORDERED: Sodium Chloride 500ML 550 ML IV ONE (21:45)
[2017-10-10] VITALS: BP 133/65
[2017-10-10 04:00] VITALS: BP 127/65
[2017-10-10] MEDS: NovoLOG Insulin Flexpen SUBQ SCH ×2 (06:30→11:30)
--- NOTE | 2017-10-10 07:39 | General Progress Note ---
Assessment/Plan Problem List: (1) ALTON (acute kidney injury) ICD Codes: N17.9 - Acute kidney failure, unspecified SNOMED: 57203035 (2) Episode of generalized weakness ICD Codes: R53.1 - Weakness SNOMED: 86744744 (3) SVT (supraventricular tachycardia) ICD Codes: I47.1 - Supraventricular tachycardia SNOMED: 5218191 (4) Orthostatic hypotension ICD Codes: I95.1 - Orthostatic hypotension SNOMED: 94232767 Status: stable, progressing Assessment/Plan ivf monitor orthostatics pt/ot eval tele b-blockade replace lytes as needed carotids cards follow up anticipate dc planning later today if no more svt/bradycardia Subjective ROS Limited/Unobtainable: No Constitutional: Reports: weakness HEENT: Reports: no symptoms Cardiovascular: Reports: irregular heart rate Respiratory: Reports: no symptoms Gastrointestinal/Abdominal: Reports: no symptoms Genitourinary: Reports: no symptoms Neurologic/Psychiatric: Reports: no symptoms Endocrine: Reports: no symptoms Hematologic/Lymphatic: Reports: no symptoms Allergies: Coded Allergies: No Known Allergies (Unverified , 10/04/17) All Systems: reviewed and negative except above Subjective no events. walked with pt yesterday. Hr better controlled 60-110. no dizziness. bolused ivf for +orthostatics last night Objective Last 24 Hour Vital Signs Date Time Temp Pulse Resp B/P (MAP) Pulse Ox O2 Delivery O2 Flow Rate FiO2 10/10/17 04:00 97.3 69 21 127/65 94 Room Air 97.3 10/10/17 04:00 62 10/10/17 00:00 117 10/10/17 00:00 98.1 90 22 133/65 97 Room Air 98.1 10/09/17 21:24 66 141/63 10/09/17 20:00 76 10/09/17 20:00 97.3 69 21 127/69 94 Room Air 97.3 10/09/17 16:00 98.2 60 18 141/63 95 98.2 10/09/17 16:00 66 10/09/17 12:00 97.0 57 18 141/78 96 97.0 10/09/17 12:00 57 10/09/17 09:05 74 148/99 10/09/17 09:05 74 148/99 10/09/17 08:00 97.2 74 18 148/99 96 Room Air 97.2 10/09/17 08:00 66 Intake and Output 10/09/17 10/10/17 19:00 07:00 Intake Total 360 ml Balance 360 ml Intake Oral 360 ml # Voids 2 2 Height (Feet): 5 Height (Inches): 4.00 Weight (Pounds): 130 Objective General Appearance: WD/WN, alert Neck: supple Cardiovascular: normal rate, regular rhythm Respiratory/Chest: chest wall non-tender, lungs clear, normal breath sounds Abdomen: normal bowel sounds, non tender, soft Edema: no edema noted Arm (L), no edema noted Arm (R), no edema noted Leg (L), no edema noted Leg (R), no edema noted Pedal (L), no edema noted Pedal (R), no edema noted Generalized Neurologic: alert ASIA ZIEGLER Oct 10, 2017 07:39
[2017-10-10] MEDS ORDERED: LIPITOR20 MG ORAL (07:45)
[2017-10-10] MEDS ORDERED: ASPIRIN81 MG ORAL (07:45)
[2017-10-10] MEDS ORDERED: CELEXA20 MG ORAL (07:45)
[2017-10-10] MEDS ORDERED: PROTONIX40 MG ORAL (07:45)
[2017-10-10] MEDS ORDERED: PROCARDIA XL30 MG ORAL (07:45)
[2017-10-10] MEDS ORDERED: METOPROLOL TART50 MG ORAL (07:45)
[2017-10-10] MEDS ORDERED: GLUCOPHAGE500 MG ORAL (07:45)
[2017-10-10 08:00] VITALS: BP_SYST 123; BP_SYST 134; BP_SYST 145; BP_DIAS 78; BP_DIAS 90
[2017-10-10] MEDS: Citalopram Hydrobromide 10mg Tab ORAL SCH (08:36)
[2017-10-10] MEDS: metFORMIN 500mg tab ORAL SCH (08:36)
[2017-10-10] MEDS: Aspirin Baby 81mg ORAL SCH (08:36)
[2017-10-10] MEDS: Metoprolol Tartrate 50mg tab ORAL SCH (08:36)
[2017-10-10] MEDS: Heparin 5000 units/ml inj SUBQ SCH (08:39)
[2017-10-10 08:43] LABS: BASOPHILS % (AUTO) 1.5 % (0.0-2.0); EOSINOPHILS % (AUTO) 3.4 % (0.0-3.0); HEMATOCRIT 34.5 % (37.0-47.0); HEMOGLOBIN 11.8 G/DL (12.0-16.0); LYMPHOCYTES % (AUTO) 41.2 % (20.0-45.0); MEAN CORPUSCULAR VOLUME 95 FL (80-99); MONOCYTES % (AUTO) 8.9 % (1.0-10.0); PLATELET COUNT 221 K/UL (150-450); RED BLOOD COUNT 3.64 M/UL (4.20-5.40); WHITE BLOOD COUNT 7.6 K/UL (4.8-10.8)
[2017-10-10 09:01] LABS: ALANINE AMINOTRANSFERASE 16 U/L (12-78); ALBUMIN 3.2 G/DL (3.4-5.0); ALBUMIN/GLOBULIN RATIO 0.9 (1.0-2.7); ALKALINE PHOSPHATASE 68 U/L (46-116); ANION GAP 7 mmol/L (5-15); ASPARTATE AMINO TRANSFERASE 14 U/L (15-37); BILIRUBIN,TOTAL 0.4 MG/DL (0.2-1.0); BLOOD UREA NITROGEN 23 mg/dL (7-18); CALCIUM 9.2 MG/DL (8.5-10.1); CARBON DIOXIDE 31 MMOL/L (21-32); CHLORIDE 104 MMOL/L (98-107); CREATININE 0.9 MG/DL (0.55-1.30); POTASSIUM 3.4 MMOL/L (3.5-5.1); SODIUM 142 MMOL/L (136-145)
[2017-10-10 12:00] VITALS: BP 142/78
--- NOTE | 2017-10-10 19:18 | Cardiology Report ---
APPROVED REPORT EKG Measurement Heart [id number] 114P82 [id number] Sinus tachycardia Right bundle branch block Inferior infarct, age undetermined Abnormal ECG
--- NOTE | 2017-10-11 08:54 | Diagnostic Imaging Report ---
APPROVED REPORT CPT Code: 01563 Vascular Symptoms Dizziness and Vertigo Doppler Spectral Velocity Analysis RightLeft BILATERAL: CCA - Imaging reveals no significant plaque in the right and left common external carotid arteries. The Doppler signal indicates the degree of stenosis is minimal (05%-10%) in the internal and external carotid arteries. VERTEBRAL- The vertebral arteries are patent without evidence of stenosis or steal.
--- NOTE | 2017-10-11 08:54 | Diagnostic Imaging Report ---
APPROVED REPORT CPT Code: 50172 Present Symptoms Comments: R/O DVT HX OF HTN BILATERAL: Imaging reveals a patent deep venous system bilaterally. There is no evidence of thrombus within the femoral, popliteal or tibial segments. The greater saphenous veins are also within normal limits. Doppler indicates normal spontaneous flow within these segments.
--- NOTE | 2017-10-11 12:31 | Discharge Summary ---
Discharge Summary Hospital Course Date of Admission Oct 04, 2017 at 16:21 Date of Discharge Oct 10, 2017 at 16:19 Admitting Diagnosis WEAKNESS HPI Matilda Gonzales is a 82 year old female who was admitted on Oct 04, 2017 at 16:21 for Weakness Hospital Course [id number] Discharge Discharge Disposition Patient was discharged to Home with Home Health(06) Katalina Rod NP Oct 11, 2017 12:31
--- NOTE | 2017-10-12 00:45 | Discharge Summary 2 SIG ---
DATE OF ADMISSION: 10/04/2017 DATE OF DISCHARGE: 10/10/2017 PIZZA DELIVERY: Figueroa Orantes M.D. BRIEF HOSPITAL COURSE: The patient is an 82-year-old female with history of hypertension and diabetes who is a poor historian presented with complaints of generalized weakness, dizziness, and failure to thrive. She denied any fever or chills. She has no cough. She does have some mild diarrhea however no recent travel or any sick contacts. On evaluation at ED, the patient's initial workup was relatively unremarkable. She had an EKG with right bundle-branch block. Unclear whether this is new. She had a lactic acid of 2. Urinalysis was clear. Initial troponin was negative. She was admitted for evaluation of weakness, suspect due to dehydration and from gastroenteritis. She was given IV hydration. Her troponins were monitored. She underwent cardiac evaluation with Dr. Orantes. Troponin levels were negative. She had hypertensive heart disease, however, no signs of acute congestive heart failure or acute coronary insufficiency. She had an echocardiogram done that showed ejection fraction of 55% to 60% with normal left ventricular size, function, and wall motion. She had moderate aortic insufficiency, mild mitral regurgitation, mild tricuspid regurgitation, and mild pulmonary hypertension. Venous duplex of lower extremity was negative for acute DVT. Carotid ultrasound showed no significant plaque in the right and left common external carotid artery. There was minimal degree of stenosis in the internal and carotid artery. Vertebral arteries were patent without evidence of stenosis or steal . She was monitored for diarrhea and had episodes of hypokalemia, potassium and magnesium were replaced. She was given aspirin and was continued on Lipitor. She was placed on Procardia and metoprolol. Blood sugars were monitored and was given Glucophage 500 mg b.i.d. together with NovoLog sliding scale. She had an episode of paroxysmal supraventricular tachyarrhythmia and sinus tachycardia which eventually resolved. She was given physical therapy and occupational therapy evaluation. She was eventually discharged home with home health. FINAL DIAGNOSES: 1. Acute kidney injury. 2. Episode of generalized weakness. 3. Supraventricular tachycardia. 4. Orthostatic hypotension. 5. Hypokalemia. 6. Hypertensive heart disease. 7. Hypomagnesemia. 8. Mild protein-calorie malnutrition. 9. Sinus node disease. 10. Syncope likely due to tachyarrhythmia and hypokalemia. 11. Right bundle-branch block of no clinical significance. 12. Lactic acidosis. DISPOSITION: The patient was discharged home with home health. DISCHARGE MEDICATIONS: Refer to medication list. DISCHARGE INSTRUCTIONS: Followup with PCP in a week. Cecil Mcclelland M.D. I have been assigned to dictate discharge summary on this account and I was not involved in the patient's management. Katalina Rod N.P. DR: Olivier JOB#: [id number] CC: NEO
--- NOTE | 2017-10-12 03:30 | Progress Note ---
DATE: 10/10/2017 CARDIOLOGY PROGRESS NOTE Late entry for 10/10/2017. SUBJECTIVE: The patient's friend has brought her prior medications in and she was on a different beta-franklin although dose is not clear. The patient has been advised to continue one beta-franklin upon discharge namely metoprolol, which I feel has better control of heart rate. The patient has no chest pain. No shortness of breath. The patient received intravenous fluids for additional orthostatic changes. OBJECTIVE: VITAL SIGNS: Blood pressure 127/65, pulse 69, and respirations 21. LUNGS: Clear. CARDIAC: Regular. Normal S1, S2. ABDOMEN: Soft. EXTREMITIES: No edema. IMPRESSION: 1. Sinus node disease. 2. Paroxysmal supraventricular tachyarrhythmias. 3. Orthostatic hypotension. 4. Dehydration and hypovolemia, improving. 5. Chronic kidney disease with acute decompensation due to acute tubular necrosis related to hypovolemia, now resolved. PLAN: 1. Maintain adequate hydration. 2. Continue current regimen with beta-franklin dose as reviewed with the patient and specific beta-franklin agent discussed. 3. Outpatient follow up. 4. Long-term progression of her sinus node disease may require a pacemaker with additional beta-blockade or antiarrhythmic therapy with backup pacemaker as well. Figueroa Oarntes M.D. DR: JAZZY JOB#: [id number] CC:
--- NOTE | 2017-10-12 04:00 | Progress Note ---
DATE: 10/09/2017 CARDIOLOGY PROGRESS NOTE Late entry, 10/09/2017. SUBJECTIVE: The patient has episodes of short runs of SVT, which may be atrial flutter, has episodes of sinus bradycardia as well that are asymptomatic. The patient remains orthostatic at times. PHYSICAL EXAMINATION: VITAL SIGNS: Blood pressure 141/63, pulse 66, respirations 18, and afebrile. NECK: Supple. LUNGS: With good breath sounds. CARDIAC: Regular rhythm and rate. Normal S1, S2 with a fourth heart sound. ABDOMEN: Soft. No edema. DIAGNOSTIC DATA: Carotid duplex reviewed with no flow limitation. IMPRESSION: 1. Hypovolemia and orthostasis. 2. Sinus node disease. 3. Paroxysmal atrial tachyarrhythmias. 4. Hypomagnesium and hypokalemia. PLAN: 1. Low-dose beta-franklin with titration. 2. Attempt to obtain more data regarding prior care. 3. Long-term management may have to include a pacemaker if tachy-boom syndrome progresses. 4. Monitor electrolytes and replace accordingly. 5. Volume support until euvolemic. Figueroa Orantes M.D. DR: PUNEET JOB#: [id number] CC:
== END 2017-10-10 16:19 | disposition home health service (06) | DRG 682 ==
LOC: EDBD 15:26 → EMR 16:10 → 4W 16:21 → EDBEDREQ 16:44 → 2E 10-06 14:07
DX: N17.0 Acute kidney failure with tubular necrosis (principal); G92 Toxic encephalopathy; E87.2 Acidosis; E44.1 Mild protein-calorie malnutrition; I47.1 Supraventricular tachycardia; E86.0 Dehydration; I45.10 Unspecified right bundle-branch block; I11.9 Hypertensive heart disease without heart failure; I35.1 Nonrheumatic aortic (valve) insufficiency; I34.0 Nonrheumatic mitral (valve) insufficiency; E87.6 Hypokalemia; I16.0 Hypertensive urgency; I25.9 Chronic ischemic heart disease, unspecified; E83.42 Hypomagnesemia; I95.1 Orthostatic hypotension; E86.1 Hypovolemia; E11.9 Type 2 diabetes mellitus without complications; K52.9 Noninfective gastroenteritis and colitis, unspecified
CPT/HCPCS: 36415; 70450; 71045; 80053; 80061; 81003; 82550; 82553; 82962; 83036; 83605; 83735; 83880; 84443; 84484; 85025; 85362; 86710; 87040; 93005; 93306; 93880; 93970; 99285; J1815; J8499